=== PATIENT | male | born 1950 | race Asian ===

== ENCOUNTER 2016-07-10 21:38 | Emergency (ER) | payer OTHER ==
[~2016-07-10] VITALS: Ht 170.2 cm; Wt 90.9 kg
[~2016-07-10 21:38] MED LIST: ASPIR 8181 M1 PO; ASPIRIN81 M2 PO; ATIVAN0.5 MG PO; Ativan PO; CARVEDILOL12.5 MG PO; ENALAPRIL MALE2.5 MG PO; Ecotrin PO; FLONASE16 G1 BOTH NARES; GLUMETZA1000 M1 PO; JANUVIA100 MG PO; LANTUS 3 M100 UNITS1 SC; LOVAZA1 GM PO; METFORMIN HCL1000 M1 PO; NITROGLYCERIN0.4 MG SL; PEPCID20 MG PO; PLAVIX75 MG PO; Protonix PO; SIMVASTATIN20 MG PO; TIMOLOL MALEATE15 M1 LEFT EYE; TRAMADOL HCL50 MG PO
[2016-07-10 22:55] LABS: EOSINOPHIL (%) 1.4 % (0-5); EOSINOPHIL COUNT 0.1 K/uL (0-0.3); HEMATOCRIT 47.5 % (38.0-50.0); IMMATURE GRANULOCYTE (%) 0.8 % (0.0-0.7); IMMATURE GRANULOCYTE COUNT 0.1 K/uL; INSTRUMENT ABS NEUTROPHIL CT 4.2 K/uL; LYMPHOCYTE COUNT 3.1 K/uL (1.0-2.8); MCH 27.2 PG (29.0-34.0); MCHC 32.2 G/DL (30.0-36.0); MCV 84.4 FL (86-99); MEAN PLAT.VOLUME 10.8 uM^3 (9.0-12.4); MONOCYTE (%) 9.1 % (3-12); MONOCYTE COUNT 0.8 K/uL (0-0.8); NEUTROPHIL (%) 50.8 % (45-76); NEUTROPHIL COUNT 4.2 K/uL (1.8-6.4); PLATELET COUNT 202 K/uL (156-360); RBC DIS.WIDTH-CV 14.6 % (11.8-14.6); RBC DIS.WIDTH-SD 45.1 % (39-53); RED BLOOD COUNT 5.63 M/uL (4.00-5.50); WHITE BLOOD COUNT 8.3 K/uL (4.1-10.2)
[2016-07-10 23:07] LABS: PROTHROMBIN TIME 10.5 (9.2-11.2); PTT 24.9 (25-32)
[2016-07-10 23:14] LABS: CHLORIDE 100 mEq/L (99-109); POTASSIUM 4.4 mEq/L (3.7-5.4); SODIUM 135 mEq/L (136-147)
[2016-07-10 23:14] LABS: TROP-I INTERPRETATION NEGATIVE; TROPONIN-I < 0.01 ng/mL (0.0-0.30)
[2016-07-10 23:15] LABS: TROP-I INTERPRETATION NEGATIVE; TROPONIN-I < 0.01 ng/mL (0.0-0.30)
[2016-07-10 23:16] LABS: GLUCOSE 94 mg/dL (70-99)
[2016-07-10 23:17] LABS: ANION GAP 10 MEQ/L (2-14)
[2016-07-10 23:18] LABS: TOTAL BILIRUBIN 0.7 mg/dL (0.0-1.0)
[2016-07-10 23:20] LABS: ALKALINE PHOSPHATASE 61 IU/L (3-129); GFR ESTIMATE (CALCULATED) > 59 mL/min/
[2016-07-10 23:21] LABS: UREA NITROGEN (BUN) 14 mg/dL (9-23)
[2016-07-11 01:14] LABS: TROP-I INTERPRETATION NEGATIVE; TROPONIN-I < 0.01 ng/mL (0.0-0.30)
[2016-07-11 01:40] VITALS: BP 122/75
== END 2016-07-11 01:53 | disposition left against medical advice (07) ==
LOC: EME 21:38
PROVIDERS: Emergency Medicine; Physician Assistant
DX: M54.6 Pain in thoracic spine (principal); I25.10 Atherosclerotic heart disease of native coronary artery without angina pectoris; Z95.5 Presence of coronary angioplasty implant and graft; I10 Essential (primary) hypertension; I25.2 Old myocardial infarction; E11.9 Type 2 diabetes mellitus without complications; E78.5 Hyperlipidemia, unspecified; Z79.4 Long term (current) use of insulin; Z79.82 Long term (current) use of aspirin; Z79.02 Long term (current) use of antithrombotics/antiplatelets; Z87.891 Personal history of nicotine dependence
CPT/HCPCS: 71020; 80048 91; 80053; 84484; 85025; 85027; 85610; 85730; 93005; 99281; 99284

== ENCOUNTER 2016-11-14 08:54 | Emergency (ER) | payer OTHER ==
[~2016-11-14] VITALS: Ht 170.2 cm; Wt 89.5 kg
[2016-11-14] MEDS ORDERED: PANTOPRAZOLE SO40 MG PO (10:00)
[2016-11-14] MEDS ORDERED: DIOVAN320 MG PO (10:01)
[2016-11-14] MEDS ORDERED: LANTUS 3 M100 UNITS1 SC (10:03)
[2016-11-14] MEDS ORDERED: XALATAN2.5 ML LEFT EYE (10:04)
[2016-11-14 10:24] LABS: HEMATOCRIT 44.6 % (38.0-50.0); MCH 27.3 PG (29.0-34.0); MCV 82.7 FL (86-99); MEAN PLAT.VOLUME 11.2 uM^3 (9.0-12.4); PLATELET COUNT 175 K/uL (156-360); RBC DIS.WIDTH-CV 13.6 % (11.8-14.6); RED BLOOD COUNT 5.39 M/uL (4.00-5.50); WHITE BLOOD COUNT 16.1 K/uL (4.1-10.2)
[2016-11-14 10:37] LABS: CHLORIDE 102 mEq/L (99-109)
[2016-11-14 10:38] LABS: POTASSIUM 4.2 mEq/L (3.7-5.4); SODIUM 136 mEq/L (136-147)
[2016-11-14 10:40] LABS: GLUCOSE 129 mg/dL (70-99)
[2016-11-14 10:41] LABS: ANION GAP 12 MEQ/L (2-14)
[2016-11-14 10:42] LABS: TOTAL BILIRUBIN 1.2 mg/dL (0.0-1.0)
[2016-11-14 10:43] LABS: ALKALINE PHOSPHATASE 68 IU/L (3-129); GFR ESTIMATE (CALCULATED) > 59 mL/min/
[2016-11-14 10:44] LABS: TROP-I INTERPRETATION NEGATIVE; TROPONIN-I < 0.01 ng/mL (0.0-0.30)
[2016-11-14 10:45] LABS: UREA NITROGEN (BUN) 21 mg/dL (9-23)
[2016-11-14 10:47] LABS: LIPASE 13 U/L (1.0-51.0)
[2016-11-14 11:42] LABS: ADD MIUA? NO; BILIRUBIN NEGATIVE; BLOOD NEGATIVE; COLOR YELLOW ((YELLOW)); GLUCOSE (STRIP) NEGATIVE; KETONES 5; LEUKOCYTES NEGATIVE; NITRITE NEGATIVE; PROTEIN (STRIP) NEGATIVE; SPECIFIC GRAVITY 1.016 (1.000-1.030); UCUL ADDED? NO; UROBILINOGEN 0.2 MG/DL (0.2-1.0)
[2016-11-14] MEDS ORDERED: ZOFRAN ODT4 MG PO (13:35)
[2016-11-14 14:16] LABS: TROP-I INTERPRETATION NEGATIVE; TROPONIN-I < 0.01 ng/mL (0.0-0.30)
[2016-11-14 15:14] VITALS: BP 111/87
== END 2016-11-14 15:27 | disposition home or self-care (01) ==
LOC: EME 08:54
PROVIDERS: Emergency Medicine
DX: R11.2 Nausea with vomiting, unspecified (principal); R07.89 Other chest pain; D72.829 Elevated white blood cell count, unspecified; R10.13 Epigastric pain; K59.00 Constipation, unspecified; I10 Essential (primary) hypertension; E78.5 Hyperlipidemia, unspecified; E11.9 Type 2 diabetes mellitus without complications; Z79.4 Long term (current) use of insulin; Z79.02 Long term (current) use of antithrombotics/antiplatelets; Z79.82 Long term (current) use of aspirin; Z95.5 Presence of coronary angioplasty implant and graft; Z87.891 Personal history of nicotine dependence
CPT/HCPCS: 71020; 74020; 80053; 81003; 83605; 83690; 84484; 85027; 93005; 99281; 99284; J2405; J7030

== ENCOUNTER 2017-06-17 15:12 | Emergency (ER) | payer OTHER ==
[~2017-06-17] VITALS: Ht 170.2 cm; Wt 89.4 kg
[~2017-06-17 15:12] MED LIST changes: +DIOVAN320 MG PO; +PANTOPRAZOLE SO40 MG PO; +XALATAN2.5 ML LEFT EYE; +ZOFRAN ODT4 MG PO
[2017-06-17 15:55] LABS: HEMATOCRIT 44.3 % (38.0-50.0); HEMOGLOBIN 14.7 G/DL (12.5-16.6); MCH 28.1 PG (29.0-34.0); MCHC 33.2 G/DL (30.0-36.0); MCV 84.7 FL (86-99); PLATELET COUNT 175 K/uL (156-360); RBC DIS.WIDTH-CV 14.5 % (11.8-14.6); RBC DIS.WIDTH-SD 44.5 % (39-53); RED BLOOD COUNT 5.23 M/uL (4.00-5.50); WHITE BLOOD COUNT 8.6 K/uL (4.1-10.2)
[2017-06-17 15:58] LABS: APPEARANCE CLEAR ((CLEAR)); BILIRUBIN NEGATIVE; BLOOD NEGATIVE; COLOR COLORLESS ((YELLOW)); GLUCOSE (STRIP) NEGATIVE; KETONES NEGATIVE; LEUKOCYTES NEGATIVE; NITRITE NEGATIVE; PROTEIN (STRIP) NEGATIVE; SPECIFIC GRAVITY 1.004 (1.000-1.030); UCUL ADDED? NO; UROBILINOGEN 0.2 MG/DL (0.2-1.0)
[2017-06-17 16:05] LABS: CHLORIDE 104 mEq/L (99-109); SODIUM 137 mEq/L (136-147)
[2017-06-17 16:07] LABS: GLUCOSE 151 mg/dL (70-99)
[2017-06-17 16:11] LABS: GFR ESTIMATE (CALCULATED) > 59 mL/min/ (58.99-99999)
[2017-06-17 16:12] LABS: UREA NITROGEN (BUN) 13 mg/dL (9-23)
[2017-06-17] MEDS ORDERED: MIRALAX17 GM PO (17:38)
[2017-06-17] MEDS ORDERED: COLACE100 MG PO (17:38)
[2017-06-17 17:51] VITALS: BP 143/86
== END 2017-06-17 18:03 | disposition home or self-care (01) ==
LOC: EME 15:12
DX: K59.00 Constipation, unspecified (principal); N50.812 Left testicular pain; M54.5 Low back pain; E11.9 Type 2 diabetes mellitus without complications; Z79.4 Long term (current) use of insulin; E78.5 Hyperlipidemia, unspecified; I10 Essential (primary) hypertension; I25.2 Old myocardial infarction; F32.9 Major depressive disorder, single episode, unspecified; Z95.5 Presence of coronary angioplasty implant and graft; Z87.891 Personal history of nicotine dependence
CPT/HCPCS: 72131; 74176; 76870; 80048; 81003; 85027; 93975; 99281; 99284

== ENCOUNTER 2017-11-08 15:36 | Observation (INO) | payer OTHER ==
[~2017-11-08] VITALS: Ht 170.2 cm; Wt 86.7 kg
[~2017-11-08 15:36] MED LIST changes: +COLACE100 MG PO; +MIRALAX17 GM PO
[2017-11-08 16:09] LABS: HEMATOCRIT 42.2 % (38.0-50.0); HEMOGLOBIN 14.6 G/DL (12.5-16.6); MCH 28.7 PG (29.0-34.0); MCHC 34.6 G/DL (30.0-36.0); MCV 83.1 FL (86-99); PLATELET COUNT 178 K/uL (156-360); RBC DIS.WIDTH-CV 14.3 % (11.8-14.6); RBC DIS.WIDTH-SD 43.1 % (39-53); RED BLOOD COUNT 5.08 M/uL (4.00-5.50)
[2017-11-08 16:22] LABS: CHLORIDE 105 mEq/L (99-109); POTASSIUM 4.5 mEq/L (3.7-5.4); SODIUM 137 mEq/L (136-147)
[2017-11-08 16:23] LABS: GLUCOSE 265 mg/dL (70-99)
[2017-11-08 16:27] LABS: GFR ESTIMATE (CALCULATED) > 59 mL/min/ (58.99-99999)
[2017-11-08 16:28] LABS: UREA NITROGEN (BUN) 16 mg/dL (9-23)
[2017-11-08 16:34] LABS: TROP-I INTERPRETATION NEGATIVE; TROPONIN-I < 0.01 ng/mL (0.0-0.30)
[2017-11-08] MEDS ORDERED: ZANTAC150 MG PO (20:03)
[2017-11-08 20:05] VITALS: BP 121/73
[2017-11-08 23:06] LABS: TROP-I INTERPRETATION NEGATIVE; TROPONIN-I < 0.01 ng/mL (0.0-0.30)
[2017-11-08 23:58] VITALS: BP 124/71
[2017-11-09 05:04] VITALS: BP 102/58
[2017-11-09 06:30] LABS: TROP-I INTERPRETATION NEGATIVE; TROPONIN-I < 0.01 ng/mL (0.0-0.30)
[2017-11-09 07:35] VITALS: BP 113/66
[2017-11-09] MEDS ORDERED: IRBESARTAN300 MG PO (09:50)
== END 2017-11-09 11:26 | disposition home or self-care (01) ==
LOC: EME 15:36 → EDOF 17:47 → 4SOUTH 17:47 → EDOF 17:47 → ENRESERV 18:08 → 4SOUTH 19:32
PROVIDERS: Family Medicine
DX: R07.9 Chest pain, unspecified (principal); I25.10 Atherosclerotic heart disease of native coronary artery without angina pectoris; T82.858A Stenosis of other vascular prosthetic devices, implants and grafts, initial encounter; I25.2 Old myocardial infarction; Z95.5 Presence of coronary angioplasty implant and graft; I10 Essential (primary) hypertension; E11.9 Type 2 diabetes mellitus without complications; E78.5 Hyperlipidemia, unspecified; Z87.891 Personal history of nicotine dependence; Z79.4 Long term (current) use of insulin
CPT/HCPCS: 71046; 80048; 82948; 84484; 85027; 93005; 99281; 99285; G0378